=== PATIENT | female | born 1960 | race Caucasian/White ===

== ENCOUNTER → 2017-01-05 | Outpatient (CLI) | payer MEDICAID ==
[~2017-01-05] MED LIST: ASPIRIN 81MG TA81 MG PO; CIPROFLOXACIN500 MG PO; GABAPENTIN300 MG PO; HYDROCHLOROTH12.5 M1 PO; METFORMIN 500M500 MG PO; NORCO 325 MG-51 TAB PO; OMEPRAZOLE40 MG PO; PAXIL40 M1 PO; PERCOCET1 TAB PO; ZANAFLEX4 M2 PO; ZESTRIL2.5 M1 PO
[2017-01-05 10:00] LABS: AMPHETAMINES/METAMPHETAMINES NEGATIVE ng/mL (<1000)
[2017-01-11 06:37] LABS: Opiates Negative (Cutoff=100)
== END ==
LOC: LAB 08:57
PROVIDERS: Anesthesiology
DX: Z79.899 Other long term (current) drug therapy (principal)